=== PATIENT | female | born 1940 | race Caucasian/White ===

== ENCOUNTER 2016-12-30 11:23 | Emergency (ER) | payer MEDICAID, OTHER, SELFPAY ==
[2016-12-30 11:23] VITALS: BMI 31.4
[2016-12-30 12:09] VITALS: BP 168/83; PULSE 73; RESP 18; TEMP 98.6; O2SAT 96
--- NOTE | 2016-12-30 12:28 | C.PDOC ---
History Of Present Illness 76 year old patient, with a past medical history of hypertension, niddm and hyperlipidemia, presents to the emergency department requesting a refill on her Metformin. Patient states she is here visiting her son. Patient denies any other medical complaints at this time. 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[id number]) History/Exam Limitations: language barrier Onset/Duration Of Symptoms: Other Severity: None Pain Scale Rating Of: 0 Recent travel outside of the [place]: No Past Medical History Reviewed: Historical Data, Nursing Documentation, Vital Signs Vital Signs: Last Vital Signs Temp 98.6 F 12/30/16 11:50 Pulse 73 12/30/16 11:50 Resp 18 12/30/16 11:50 BP 168/83 H 12/30/16 11:50 Pulse Ox 96 12/30/16 13:57 - Medical History PMH: HTN, Hyperlipidemia Family History: States: Unknown Family Hx - Social History Hx Alcohol Use: No Hx Substance Use: No - Immunization History Hx Tetanus Toxoid Vaccination: No Hx Influenza Vaccination: No Hx Pneumococcal Vaccination: No Review Of Systems Except As Marked, All Systems Reviewed And Found Negative. Cardiovascular: Negative for: Chest Pain Respiratory: Negative for: Shortness of Breath Gastrointestinal: Negative for: Nausea, Vomiting Physical Exam - Physical Exam Appears: Non-toxic, No Acute Distress Skin: Warm, Dry Head: Atraumatic, Normacephalic Eye(s): bilateral: Normal Inspection, PERRL, EOMI Oral Mucosa: Moist Neck: Normal ROM, Supple Chest: Symmetrical Cardiovascular: Rhythm Regular Respiratory: Normal Breath Sounds, No Rales, No Rhonchi, No Wheezing Neurological/Psych: Oriented x3 Gait: Steady ED Course And Treatment O2 Sat by Pulse Oximetry: 96 (room air) Pulse Ox Interpretation: Normal Progress Note: Plan: Metformin Medical Decision Making Medical Decision Making: pt in [place] visiting her son for a month, does not have adequate month supply of medications, including metformin, pravstatin, gabapentin and hctz. will give refills. pt may f/u in med clinic with Dr Contreras (has seen her in the past). Disposition Counseled Patient/Family Regarding: Diagnosis, Need For Followup, Rx Given - Disposition Referrals: Dorene Contreras MD [Staff Provider] - Disposition: HOME/ ROUTINE Disposition Time: 13:50 Condition: GOOD Additional Instructions: Follow up with Dr Contreras next week. Take medications as prescribed. Return to ER for any worsening symptoms. 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 - Scribe Statement The provider has reviewed the documentation as recorded by the Scribe Wendy Morales All medical record entries made by the Scribe were at my direction and personally dictated by me. I have reviewed the chart and agree that the record accurately reflects my personal performance of the history, physical exam, medical decision making, and the department course for this patient. I have also personally directed, reviewed, and agree with the discharge instructions and disposition.
== END 2016-12-30 14:09 | disposition home or self-care (01) ==
LOC: C.ER 11:23
DX: Z76.0 Encounter for issue of repeat prescription (principal); E11.65 Type 2 diabetes mellitus with hyperglycemia